=== PATIENT | male | born 1985 | race Caucasian/White ===

== ENCOUNTER 2021-10-08 14:01 | Emergency (ER) | payer OTHER ==
[~2021-10-08] VITALS: Ht 182.9 cm; Wt 90.7 kg
== END 2021-10-08 16:21 | disposition home or self-care (01) ==
LOC: ED 14:01
DX: F10.239 Alcohol dependence with withdrawal, unspecified (principal); Z20.822 Contact with and (suspected) exposure to COVID-19
CPT/HCPCS: 70450; 70486; 71260; 72125; 74177; 80053; 81001; 83690; 83735; 85025; 85610; 85730; 99284-25; G0480; J2060; J7121; Q9967

== ENCOUNTER 2021-10-08 20:17 | Inpatient (IN) | payer OTHER ==
[~2021-10-08] VITALS: Ht 182.9 cm; Wt 96.0 kg
--- OUTSIDE RECORDS SUMMARY | 2021-10-08 20:20 | XMS ---
PreManage Notification: KAREN KONG Security It Quality Assurance Analyst Events No recent Security Events currently on file CRITERIA MET - [facility] - 2 Visits in 30 Days CARE PROVIDERS There are no care providers on record at this time. Gerardo has no Care Guidelines for this patient. Josefina VISIT COUNT (12 MO.) 1 [facility] [address] [place], [place] [address]Brian TOTAL 5 NOTE: Visits indicate total known visits. ED/[facility] VISIT TRACKING (12 MO.) 10[facility]08[facility]2021 20:[facility] COMPLAINT: - MULTIPLE COMPLAINTS 10/08/2021 14:02 SANDY Parham TYPE: Emergency COMPLAINT: - ALTERCATION 06/19/2021 00:14 [facility] TYPE: Emergency DIAGNOSES: - Encounter for other general examination - Other problems related to lifestyle - Medical Clearance 02/14/2021 21:44 CELSO MORLEY TYPE: Emergency DIAGNOSES: - Alcohol dependence with intoxication, unspecified 01/28/2021 08:07 CELSO MORLEY TYPE: Emergency DIAGNOSES: - COVID-19 - Alcoholic 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
--- NOTE | 2021-10-08 22:24 | EKG ---
[facility] [address] [place] [address] Signed Sinus tachycardia with premature supraventricular complexes Otherwise normal ECG No previous ECGs available Confirmed by DANIAL OWUSU MD ([id number]) on 10/08/2021 10:23:53 PM Electronically Signed By: DANIAL OWUSU MD 10/08/212223 PATIENT NAME: KAREN KONG Electrocardiogram DATE OF : 83 PHYSICIAN: DANIAL OWUSU MD REPORT #: [id number] REPORT IS CONFIDENTIAL AND NOT TO BE RELEASED WITHOUT AUTHORIZATION
--- NOTE | 2021-10-09 02:00 | NUR ---
Pt resting in bed and appears comfortable. Verbalizes needs appropriately. Call light within reach. Will cont to monitor.
--- NOTE | 2021-10-09 03:44 | NUR ---
Pt is resting in bed with his eyes closed and appears comfortable with call light at hand. Compliant with assessment. Tolerating ivf and oral medication administration. Verbalizes needs appropriately. Will cont to monitor.
--- NOTE | 2021-10-09 04:32 | NUR ---
Pt is diaphoretic, tachycardic in the 1-teens, BP elevated 152/84 and reports mild MCKEON and visual hallucinations. Pt is receiving scheduled and PRN ativan for CIWA. Pt verbalizes needs appropriately. Call light within reach. Tolerating ivf. Will cont to monitor.
--- NOTE | 2021-10-09 07:25 | NUR ---
REPORT RECIEVED, CARE OF PT ASSUMED AT THIS TIME. PT RESTING IN BED, BREATHING EVEN AND UNLABORED. HEART RATE 105. CALL LIGHT WITHIN REACH. WILL CONTINUE TO MONITOR.
--- NOTE | 2021-10-09 07:51 | NUR ---
VITALS CHARTED. PATIENT RESTING IN BED. CALL LIGHT IN REACH AND ALARM ON FOR SAFETY
--- NOTE | 2021-10-09 08:28 | NUR ---
RECEIVED SHIFT REPORT, PERFORMED MORNING ASSESSMENT AND MED ADMINISTRATION. PT IS A&O X4 THIS MORNING AND DOES NOT EXPRESS ANY PAIN IS OCCURING RIGHT NOW BUT EXPERIENCES FREQUENT HEADACHES. PT VITALS ARE WNL AND O2 SATS ARE 92-95 ON RA. PT IS RESTING IN BED WITH CALL LIGHT IN REACH, NO FURTHER NEEDS AT THIS TIME. WILL CONTINUE TO MONITOR.
--- NOTE | 2021-10-09 10:16 | NUR ---
PATIENT RESTING QUIETLY IN BED. VITALS CHARTED. CALL LIGHTIN REACH, BED ALARM ON FOR SAFETY
--- NOTE | 2021-10-09 10:40 | NUR ---
Attempted to speak with pt and he does not awaken to voice. Will follow up tomorrow.
--- NOTE | 2021-10-09 11:36 | NUR ---
PT APPEARING SLIGHTLY RESTLESS AND COMMENTED ABOUT VISUAL HALLUCINATIONS WITH O2 NC ON FACE. ADMINISTERED 1 ML ATIVAN (SEE EMAR). PT IS RESTING IN BED BUT EXPRESSED DESIRE TO SHOWER SO PUBLIC WELFARE DIRECTOR AND THIS RN GIVING PT BED BATH AND CHANGING BEDDING.
--- NOTE | 2021-10-09 12:15 | NUR ---
BEDBATH COMPLETE, PATIENT ABLE TO DO MOST OF THE BATH HIMSELF. STUDENT TAVARES AND RN IN ROOM AT THIS TIME FOR DRESSING CHANGE. TEETH BRUSH, LINENS CHANGED. PATIENT SITTING UP IN CHAIR, CALL LIGHT IN EASY REACH
--- NOTE | 2021-10-09 12:42 | NUR ---
PT FINISHED LUNCH AND GOT UP OUT OF CHAIR WITHOUT USING CALL LIGHT. IMPULSIVE AND UNSTEADY ON FEET. BACK IN BED. CALL LIGHT WITHIN REACH AND BED ALARM IN PLACE. IV FLUIDS INFUSING. WILL CONTINUE TO MONITOR.
--- NOTE | 2021-10-09 12:59 | NUR ---
UPON PERFORMING AFTERNOON ASSESSMENT, PT IS DROWSY BUT ORIENTED. PT WAS ABLE TO AMBULATE TO CHAIR, BUT UNSTEADY. DRESSING WAS CHANGED ON LARGE SIDE ABRASION, BUT PICTURES NEED TO BE ACQUIRED. VITALS ARE WNL. PEDAL PULSES ARE WEAK/THREADY WITH COLD FEET. PT IS NOW RESTING IN BED. CALL LIGHT WITHIN REACH, WILL CONTINUE TO MONITOR.
--- NOTE | 2021-10-09 13:39 | NUR ---
PT CURRENTLY SLEEPING IN BED. CURRENTLY ON RA WITH O2 SATS IN MID 90'S. PT STATES HE IS EXPERIENCING VERY VIVID DREAMS. REPOSITIONED BP CUFF, ELEVATED HEAD OF BED.
--- NOTE | 2021-10-09 14:19 | NUR ---
PT ATTEMPTING TO MOVE UP IN BED, ACCIDENTALLY PULLED IV TO RIGHT WRIST. PRESSURE DRESSING APPLIED. LINENS CHANGED. PT UP TO BED SIDE TO VOID, SLIGHTLY UNSTEADY ON FEET. 1 PERSON ASSIST.
--- NOTE | 2021-10-09 15:55 | NUR ---
PT IS RESTING IN BED BUT EXHIBITS RESTLESSNESS, OCCASIONAL TALKING IN SLEEP. HR IS IN 80'S WITH OCCASIONAL PVC'S. RN PLACED NEW IV IN RIGHT ARM AFTER PT PULLED HIS OUT ACCIDENTALLY REPOSITIONING. O2 REMAINS IN 90'S ON RA. PT CONTINUES TO BE DROWSY. CONTINUOUS FLUIDS RUNNING AT 125 MLS/HR. BED ALARM ON, CALL LIGHT WITHIN REACH, WILL CONTINUE TO MONITOR.
--- NOTE | 2021-10-09 16:18 | NUR ---
PT STOOD AT BEDSIDE TO VOID. HEART RATE UP INTO THE 150S. PT REPORTS FEELING ANXIETY. UNSTEADY ON HIS FEET. PT NOW BACK IN BED AND HEART RATE BACK DOWN INTO THE 80-90S AT REST. CALL LIGHT WITHIN REACH. BED ALARM IN PLACE. WILL CONTINUE TO MONITOR.
--- NOTE | 2021-10-09 16:40 | NUR ---
IN PT ROOM TO ADMINISTER Q4 ATIVAN (SEE EMAR). PT IS RESTING IN BED. PT EXPERIENCING SLIGHT ANXIETY AND STILL EXPERIENCING VISUAL HALLUCINATIONS. PT NOT EXPERIENCING ANY PAIN OR NAUSEA, JUST FEELS DROWSY. PT VOIDED AT BEDSIDE INTO URINAL (750 ML), NOW LAYING IN BED. NO FURTHER NEEDS AT THIS TIME. CALL LIGHT IS WITHIN REACH, WILL CONTINUE TO MONITOR.
--- NOTE | 2021-10-09 20:25 | NUR ---
PT LAYING IN BED RESTING WITH HIS EYES CLOSED ON ROOM AIR, IVF INFUSING AT ORDERED RATE. PT AWOKE EASILY AND WAS ORIENTED X4, PT DROWSY BUT EASILY AROUSABLE. PT CIWA 2 AT THIS TIME, PT IN NO APPARENT DISTRESS WITH MINIMAL TREMORS AND REPORTED HAVING SOME "VISUAL DREAMS" WHEN CLOSING HIS EYES AT TIMES BUT NOT AT THIS THIS MOMENT. PT VITALS TAKEN AT THIS (SEE CHART). PT REPORTS PAIN TO HIS RIGHT LOWER QUADRANT, ABD PAD/DRESSING NOTED THAT IS C/D/I. PT REQUESTED PRN PAIN MEDICATION, PRN TYLENOL ADMINISTERED. PT ASSESSMENT THEN COMPLETED. PT ABLE TO FOLLOW DIRECTIONS, EYES PERRLA, PT ON ROOM AIR, LUNGS ARE CLEAR THROUGHOUT, ACTIVE BOWEL TONES PRESENT, ABDOMEN SOFT, HEART RYTHM REGULAR. PT HAS STRONG RADIAL AND PEDAL PULSES AND DENIES NUMBNESS OR TINGLING TO HIS EXTREMTIES. PT PROVIDED WITH ICE WATER AT THIS TIME AND REPORTS NO FURTHER NEEDS. PT RETURNED BACK TO SLEEP. CALL LIGHT IN REACH, BED IN LOWEST POSTIION, BED ALARM ON, IVF INFUSING, WILL CONTINUE PLAN OF CARE.
--- NOTE | 2021-10-09 22:05 | NUR ---
PT SITTING UP IN BED AWAKE AND ALERT, IVF INFUSING ORDERED. PT REPORTS MILD ANXIETY AT THIS TIME STATED HE'S ANXIOUS ON HOW LONG HE WILL NEED TO BE HOSPITALIZED. PT REPORTS NO PAIN AT THIS TIME WHEN ASKED AND DENIES SHORTNESS OF BREATH. PT DENIES VISUAL HALLUCINATIONS AT THIS TIME, NO VISIBLE TREMORS NOTED. SCHEDULED IV ATIVAN ADMINISTERED (SEE MAR). PT THEN ASSISTED IN FINDING HIS PHONE FROM HIS BELONGINGS BAG. PT REPORTS NO FURTHER NEEDS AFTERWARDS, PT PROVIDED WITH JUICES PER HIS REQUEST. WILL CONTINUE PLAN OF CARE. CALL LIGHT IN REACH, BED IN LOWEST POSITION, BED ALARM ON.
--- NOTE | 2021-10-09 23:12 | NUR ---
PT SITTING UP IN BED AWAKE AND ALERT AT THIS TIME. PT URINAL NOTED TO BE FULL AND WAS EMPTIED OF 1200ML OF CONCENTRATED URINE. PT REPORTS NO FURTHER NEEDS AT THIS TIME WHEN ASKED AND REMAINS RESTING IN BED. CALL LIGHT IN REACH, BED IN LOWEST POSITION, WILL CONTINUE PLAN OF CARE.
--- NOTE | 2021-10-10 00:32 | NUR ---
checked on pt. he is asleep, can be heard snoring, HOB elevated, no visible tremors or shakes noted, respirations even and unlabored. call light in reach
--- NOTE | 2021-10-10 02:12 | NUR ---
PT ALERT AND ORIENTED SITTING UP IN BED. CIWA 0 AT THIS TIME. PT REPORTS NO ANXIETY, NO TREMORS NOTED, PT DENIES HAVING ANY VISUAL HALLUCINATIONS. IVF INFUSING ORDERED. PT ASSESSED AT THIS TIME (SEE CHART). PT REPORTS NO NEEDS AFTERWARDS AND IS RESTING IN BED AT THIS TIME. CALL LIGHT IN REACH, BED IN LOWEST POSITION, WILL CONTINUE PLAN OF CARE.
--- NOTE | 2021-10-10 02:45 | NUR ---
PT SITTING UP IN BED AWAKE. IV PUMP ALARMING. IV SITE WNL, NEW BAG OF MAINTENANCE IVF STARTED AND NOW INFUSING AT ORDERED RATE. PT REPORTS NO NEEDS WHEN ASKED, WILL CONTINUE PLAN OF CARE. CALL LIGHT IN REACH.
--- NOTE | 2021-10-10 05:53 | NUR ---
PT LAYING IN BED AWAKE, IVF INFUSING. PT VITALS TAKEN AND CIWA OF 8 OBTAINED FOR MILD ANXIETY, TREMORS, RESTLESSNESS. PRN ATIVAN ADMINISTERED (SEE AUG). ASSESSMENT COMPLETED AFTERWARDS (SEE AUG). PT REPORTS NO FURTHER NEEDS AT THIS TIME WHEN ASKED AND IS NOW RESTING IN BED. CALL LIGHT IN REACH, BED IN LOWEST POSITION, WILL CONTINUE PLAN OF CARE.
--- NOTE | 2021-10-10 07:52 | NUR ---
RECEIVED REPORT AND PERFORMED MORNING ASSESSMENT. PT IS A&O IN BED. HR GETS TACHY IN 150'S WITH EXERTION (EX: USING BEDSIDE URINAL). PT LUNGS ARE CLEAR THROUGHOUT AND PULSES PRESENT IN ALL EXTREMETIES. PT HAD URINARY OUTPUT THIS AM OF 640 ML. PT PAIN IS 1/10 OCCURRING IN HIS WOUND AND SLIGHT HEADACHE FROM NOT SLEEPING WELL. PT REMAINS ON RA WITH O2 SATS AT 98. BREAKFAST IN ROOM AND PT IS EATING WHILE RESTING IN BED. CALL LIGHT WITHIN REACH, WILL CONTINUE TO MONITOR.
--- NOTE | 2021-10-10 09:12 | NUR ---
PT IS RESTING IN BED, PT CONSUMED ABOUT 30% OF BREAKFAST. MORNING MEDS ADMINISTERED AND TOLERATED WELL. OTILIA WAS DISCUSSED AVAILABLE RESOURCE FOR RECOVERY AND ABSTINENCE. CALL LIGHT IS WITHIN REACH, WILL CONTINUE TO MONITOR.
--- NOTE | 2021-10-10 09:55 | NUR ---
PT RESTING AND TRYING TO SLEEP. STILL REMAINS DROWSY AND UNABLE TO GET ENOUGH SLEEP. PT EXPERIENCING ONLY SLIGHT HEADACHE AND SLIGHT ANXIETY. NO FURTHER NEEDS AT THIS TIME. WILL CONTINUE TO MONITOR.
--- NOTE | 2021-10-10 10:50 | NUR ---
Spoke with pt and he states he has been living and working in [facility]. He was living with his girlfriend and this ended. He state he needs to get home to [place], [place]. He has been drinking a case of beer per night. He does agree to speak with OTILIA and states he has been to rehab before. He does not want to discuss his family, but does give me his mom's phone number. I asked if he and family are not getting g along. He states they wanted him to move out here to work and to get his life right. 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 He first choice is to return to [place], he believes he has enough money for a bus, train, or flight home. If he has to spend the night somewhere he would not have enough. We discussed Kristen Guidry, Johnny departures.
--- NOTE | 2021-10-10 10:58 | NUR ---
PT IV PUMP ALARMING THAT CONTINUOUS FLUID BAG HAD FINISHED. PT IS STILL RESTING IN BED, IN AND OUT OF SLEEP BUT AWAKENS TO SOUND. NEW BAG OF CONTINOUS FLUID D5LR ADMINISTERING AT 125 ML/HR INTO RIGHT ARM. CALL LIGHT WITHIN REACH, WILL CONTINUE TO MONITOR.
--- NOTE | 2021-10-10 11:32 | NUR ---
PER TRANSFER ORDERS DC'ED CONTINUOUS FLUIDS, SALINE LOCKED 20 G IV IN RT ARM, DC'ED CARDIAC MONITORING. ASSISTED PT TO AMBULATE TO THE BATHROOM, SLIGHTLY UNSTEADY GAIT BUT AMBULATED WELL WITH ONE NURSE ASSIST. CASE MANAGEMENT IN ROOM SPEAKING WITH PT ABOUT PLAN OF CARE POST DISCHARGE. PERFORMED AFTERNOON ASSESSMENT FOR PT. PT IS A&O, CLEAR LUNGS, PULSES & CAP REFILL <3 SEC IN ALL EXTREMETIES.
--- NOTE | 2021-10-10 11:55 | NUR ---
PT SISTER SYLVESTER CALLED. PT GAVE VERBAL CONSENT TO GIVE HER AN UPDATE.
--- NOTE | 2021-10-10 12:16 | NUR ---
MED REC COMPLETE
--- NOTE | 2021-10-10 13:30 | NUR ---
Spoke with OTILIA, they will be able to visit with him today and offer options.
--- NOTE | 2021-10-10 13:33 | NUR ---
REPORT RECEIVED FROM TAVARES, WAX POT TENDER. AWAITING PTS ARRIVAL TO MED/SURG.
--- NOTE | 2021-10-10 13:55 | NUR ---
PROVIDED REPORT TO JUAN CHAPMAN ON [facility]. PREPARED ALL BELONGINGS TO TRAVEL WITH PT TO [facility] FLOOR. PT WILL TRAVEL IN BED.
--- NOTE | 2021-10-10 14:32 | NUR ---
PT ARRIVED FROM CCU. PT AMBUALTED TO MED/SURG WITH STAND BY ASSISTANCE FROM PHYSICAL THERAPY. PT REPORTS 4/10 HEADACHE BUT OTHERWISE DENIES PAIN. IV ASSESSED, BENYLBrian HERCULES LOCKED AT THIS TIME. VITAL SIGNS STABLE. CIWA SCORE OF 8 FOR MILD TREMORS. DISORIENTATION (PT UNABLE TO ADD NUBMERS). PT ALSO REPORTS FEELING "REALLY ANXIOUS." PT FOUND PACING IN ROOM. SEE MAR FOR MEDICATION GIVEN. LUNG SOUNDS CLEAR. HEART TONES REGULAR. PT TACHYCARDIC AT TIMES. PT REQUESTS TO GET UP FOR SHOWER. IV COVERED. PT UP FOR SHOWER WITH STAND BY ASSIST. PT HAS SOFT MODERATE BOWEL MOVEMENT. PT PERFORMS SELF LILLIAM CARE. DRESSING TO RIGHT HIP AND ABDOMEN REMOVED, PHOTOGRAPHS TAKEN (SEE PAPER CHART). NEW DRESSING, ADAPTIC AND OPSITE, APPLIED AFTER SHOWER. PT TOLERATED DRESSING CHANGE WELL. STAND BY ASSIST BACK TO BED. PT RESTING AND PLAYING ON PHONE. NO ADDITONAL REQUESTS OR COMPLAINTS. CALL LIGHT WITHIN REACH. BED RAILS UP.
--- NOTE | 2021-10-10 14:46 | NUR ---
Checked [employer] Schedule and pt could ride from [facility] to [place], [place] for for around $350.00.
--- NOTE | 2021-10-10 15:23 | NUR ---
THIS RN TO ROOM TO CHECK ON PT. PT FINSIHED WITH SHOWER AND RESTING IN BED. DRESSING TO LEFT HIP REMAINS C/D/I. PT REPORTS 3/10 PAIN IN RIGHT HIP AND HEADACHE. DR SCOTT CONSULTED REGARDING PO LOR[place]APAM. DR SCOTT STATES OK TO GIVE IV BUT HE WILL CHANGE ORDERS. PT DENIES ADDITIONAL REQUESTS OR COMPLAINTS. CALL LIGHT WITHIN REACH. BED RAILS UP.
--- NOTE | 2021-10-10 15:41 | NUR ---
FRESH WATER PROVIDED. THIS DEVIL TENDER NOTICED PATIENT HAD CHEWING TOBACCO IN HIS LIP, AND WHEN REMINDED THIS IS A TOBACCO FREE FACILITY, PATIENT SWALLOWED ENTIRE DIP OF CHEW. PATIENT STATES THIS IS NOT UNUSUAL FOR HIM TO DO "IT'S OK, I'M FROM [place]" RN NOTIFIED.
--- NOTE | 2021-10-10 16:15 | NUR ---
REPORT GIVEN TO ARI BALDERAS, WHO IS ASSUMING CARE OF PT.
--- NOTE | 2021-10-10 18:09 | NUR ---
Gave pt a printout of [employer] route to [place], [place] with note showing cost.
--- NOTE | 2021-10-10 18:14 | NUR ---
REPORT RECEIVED FROM ARI BALDERAS. THIS RN REASSUMING CARE OF PT. PT RESTING IN BED. PT REPORTS 7/10 HEADACHE AND PAIN TO RIGHT SIDE WHERE WOUND IS LOCATED. PT REPORTS NAUSEA AND "A WOOSHING SOUND IN MY EARS." PT ORIENTED AND ABLE TO ADD NUMBERS. CIWA OF 8 AT THIS TIME. MEDICATION RECENTLY GIVEN BY ARI SOARES. PT RESTING IN BED. NO ADDITIONAL NEEDS AT THIS TIME. CALL LIGHT WITHIN REACH. BED RAILS UP.
--- NOTE | 2021-10-10 18:48 | NUR ---
THIS RN TO ROOM TO CHECK ON PT. PT RESTING IN BED ON BACK WITH HEAD OF BED ELEVATED TO 20 DEGREES. RESPRIATIONS EVEN AND UNLABORED. PT ALLOWED TO REST. CALL LIGHT WITHIN REACH. BED RAILS UP.
--- NOTE | 2021-10-10 19:41 | NUR ---
PT TRANSFERED TO MED/SURG FROM CCU THIS SHFIT, HERE FOR DT RELATED TO ALCOHOL WITHDRAWL. PT UP WITH STAND BY ASSIST TO AMBULATE AND FOR SHOWER THIS SHIFT. PT TOLERATING REGULAR DIET WITH GOOD APPITITE. PT FOUND WITH CHEW IN MOUTH THIS SHIFT AND DECIDED TO SWALLOW WADD INSTEAD OF SPIT IT OUT. ATAVAN GIVEN FOR CIWA SCORES GREATER THAN 8 THIS SHIFT WITH GOOD RESULTS. PT HAS HEADACHES, NAUSEA, AUDITORY DISTURBANCES, ANXIETY AND AGIATION. NEW DRESSING APPLIED TO RIGHT HIP WOUND. WOUND APPEARS CLEAN AND WNL. PT VOIDIGN QUANITTY SUFFICIENT. PT USES CALL LIGHT AND MAKES NEEDS KNOWN.
--- NOTE | 2021-10-10 20:00 | NUR ---
AWAKES EASILY, NO C/O PAIN OR REQUESTS,
--- NOTE | 2021-10-10 21:52 | NUR ---
PT ON ROOM AIR, COOPERATIVE WITH ASSESSMENT, ALERT AND ORIENTED, DENIES VISUAL OR AUDITORY HALLUCINATIONS, LIGHT ARMS/HAND TREMORS NOTED, DIAPHORETIC, DID OWN SKIN DRYING. ON ROOM AIR, LUNGS CLEAR, TACHY AT TIMES, DENIES SOB OR CP. R HIP AREA REDNESS, SCABBED OVER AREA COVERED WTIH VIC, NIRMALA RA PATENT. NGA C/O PAIN. CIWA COMPLETED. WARM BLAMKET AND FLUIDS GIVEN ON REQUESTS
--- NOTE | 2021-10-10 22:54 | NUR ---
RESTING, EYES CLOSED, ON ROOM AIR, NO S/SX WITHDRAWALS, CALL LIGHT AND FLUIDS AT HANDS REACH
--- NOTE | 2021-10-11 02:54 | NUR ---
RESTING, NO DISTRESS, ON ROOM AIR,
--- NOTE | 2021-10-11 04:23 | NUR ---
Resting, on room air, no distress, eyes closed, voided , tolerating liquids well,, no s/sx withdrawal
--- NOTE | 2021-10-11 05:26 | NUR ---
Pt initial CIWA was 6 at begining of shift. Pt has slept all this shift. no s/sx withdrawals. R hip abrasion areas healing, covered with Opsite. no seizure activities noted this shift. voiding QS. cooperative and pleasant.
--- NOTE | 2021-10-11 05:40 | NUR ---
awakes easily, see ciwa scores, calm, pleasnt and coop. R hip scabbed oer areas no changes. coop with vitals,
--- NOTE | 2021-10-11 07:30 | NUR ---
RESTING IN BED, EYES CLOSED RESPIRATIONS EVEN. RECD REPORT FROM NIGHT RN. ASSUMED ALL CARE.
--- NOTE | 2021-10-11 10:18 | NUR ---
VS AND I&O'S HAVE BEEN TAKEN AND DOCUMENTED. BP TAKEN MANUALLY PER RN REQUEST. RN AWARE OF ELEVATED BP. PT STATES HE HAS NO NEEDS AT THIS TIME. INFORMED PT TO CALL IF HE NEEDS ANYTHING. CALL LIGHT IS IN REACH.
--- NOTE | 2021-10-11 10:30 | NUR ---
RESTING IN BED, ALL VSS, CIWA NEGATIVE, STATES HE HAS JUST A LITTLE BIT OF ANXIETY BUT IT IS CONTROLLED. NO DIAPHORESIS, HALLUCINATIONS, MCKEON, STILL A SLIGHT TREMOR. CM FOLLOWING FOR DC NEEDS. HE HAS BEEN THROUGH REHAB BEFORE, FROM [place] OF STATE. WILL MOST LIKELY RETURN TO HOME. PREPARING FOR DISCHARGE.
--- NOTE | 2021-10-11 10:35 | NUR ---
PT. REFUSED LOVENOX AND 2 PO VITAMINS, STATES THERE IS NO NEED SINCE I WILL BE LEAVING. UNABLE TO SCAN MEDS SECONDARY TO SEVERAL ATTEMPTS WITH BOTH WANDS AND COMPUTER ISSUES, [facility]
== END 2021-10-11 12:45 | disposition home or self-care (01) | DRG 897 ==
LOC: ED 20:17 → CCU 23:22 → MS 23:22
PROVIDERS: ADMIT Internal Medicine; ATTEND Internal Medicine
PROC: HZ2ZZZZ Detoxification Services for Substance Abuse Treatment (ICD-10-PCS; principal; 2021-10-08)
DX: F10.939 Alcohol use, unspecified with withdrawal, unspecified (principal); G40.509 Epileptic seizures related to external causes, not intractable, without status epilepticus; Z20.822 Contact with and (suspected) exposure to COVID-19; I10 Essential (primary) hypertension; Z98.890 Other specified postprocedural states
CPT/HCPCS: 36415; 80048; 80053; 83690; 83735; 84484; 85025; 93005; 93010; 96365; 96366; 96375; 96376; 97161; 99285-25; A9270; A9270-GY; C9113; J1650; J2060; J3411; J3480; J7030; J7120; J7121; U0003

== ENCOUNTER → 2021-10-13 | Emergency (ER) | payer OTHER ==
[~2021-10-13] VITALS: Ht 182.9 cm; Wt 95.7 kg
--- OUTSIDE RECORDS SUMMARY | 2021-10-13 11:48 | XMS ---
PreManage Notification: KAREN KONG Security Life Science Technical Officer Events No recent Security Events currently on file CRITERIA MET - [facility] - 2 Visits in 30 Days CARE PROVIDERS There are no care providers on record at this time. Gerardo has no Care Guidelines for this patient. Josefina VISIT COUNT (12 MO.) 1 [facility] TOTAL 6 NOTE: Visits indicate total known visits. ED/C VISIT TRACKING (12 MO.) 10/13/2021 11:46 [facility] COMPLAINT: - SUICIDAL 10/08/2021 20:18 SANDY Parham TYPE: Emergency COMPLAINT: - MULTIPLE COMPLAINTS 10/08/2021 14:02 SANDY Parham TYPE: Emergency COMPLAINT: - ALTERCATION DIAGNOSES: - Contact with and (suspected) exposure to COVID-19 - Alcohol dependence with withdrawal, unspecified - Unspecified convulsions 06/19/2021 00:14 [facility] Abby CARRERA TYPE: Emergency DIAGNOSES: - Encounter for other general examination - Other problems related to lifestyle - Medical Clearance 02/14/2021 21:44 CELSO MORLEY TYPE: Emergency DIAGNOSES: - Alcohol dependence with intoxication, unspecified 01/28/2021 08:07 CELSO MORLEY TYPE: Emergency DIAGNOSES: - COVID-19 - Alcoholic gastritis without bleeding - Personal history of nicotine dependence INPATIENT VISIT TRACKING (12 MO.) 10/08/2021 23:22 SANDY Parham TYPE: Medical Surgical COMPLAINT: - DELIRIUM TREMENS,ACUTE ALCOHOL WITHDRAWAL SEIZURE [email or web address]
== END ==
LOC: ED 11:45
DX: R45.851 Suicidal ideations (principal)
CPT/HCPCS: 36415; 80053; 85025; 96374; 96375; 96376; 99285-25; A9270; G0480; J2060; J2405; U0003